=== PATIENT | female | born 1965 | race Caucasian/White ===

== ENCOUNTER 2017-07-31 15:09 | Emergency (ER) | payer OTHER ==
[2017-07-31 16:31] LABS: WHITE BLOOD COUNT 6.7 10^3/ul (4.8-10.8)
[2017-07-31 16:31] LABS: ABNORMAL IP MESSAGE 1; HEMOGLOBIN 12.3 g/dl (12.0-16.0); MEAN CORPUSCULAR HEMOGLOBIN 22.6 pg (29.0-33.0); MEAN CORPUSCULAR HGB CONC 30.3 g/dl (32.0-37.0); MEAN CORPUSCULAR VOLUME 74.5 fl (82.0-101.0); PLATELET COUNT 221 10^3/UL (140-415); RED BLOOD COUNT 5.45 10^6/ul (4.20-5.40)
[2017-07-31 16:35] LABS: HEMATOCRIT 40.6 % (37.0-47.0)
[2017-07-31 16:36] LABS: ADD MAN DIFF? YES; POSITIVE DIFF @See below
[2017-07-31 17:05] LABS: ANISOCYTOSIS 1+ (0-0); BAND NEUTROPHILS #M 0.4 10^3/ul (0.0-0.6); BAND NEUTROPHILS % (M) 6 % (0-4); EOSINOPHILS % (M) 3 % (0-7); HYPOCHROMASIA 1+ (0-0); LYMPHOCYTES #M 0.8 10^3/ul (0.8-2.9); LYMPHOCYTES % (M) 13 % (15-51); MICROCYTOSIS 1+ (0-0); MONOCYTE #M 0.4 10^3/ul (0.3-0.9); MONOCYTES % (M) 7 % (0-11); OVALOCYTES 1+ (0-0); PLATELET ESTIMATE NORMAL; POIKILOCYTOSIS 1+ (0-0); SEG NEUT #M 4.8 10^3/ul (1.7-7.5); SEGMENTED NEUTROPHILS (M) % 71 % (39-77); SMUDGE%M 3 % (0-0); TEAR DROP CELLS 1+ (0-0)
== END 2017-07-31 17:10 | disposition home or self-care (01) ==
LOC: FTE 15:09
DX: R04.0 Epistaxis (principal)
CPT/HCPCS: 36415; 85025; 99283